=== PATIENT | male | born 1970 | race Two or more races ===

== ENCOUNTER 2024-12-09 15:52 | Inpatient (IN) | payer OTHER ==
[2024-12-09] MEDS ORDERED: LOPERAMIDE HCL 2 MG CAPSULE PO PRN (18:08)
[2024-12-09] MEDS ORDERED: IBUPROFEN 400 MG TABLET (FP) PO PRN (18:08)
[2024-12-09] MEDS ORDERED: DICYCLOMINE HCL 10 MG CAPSULE PO PRN (18:08)
[2024-12-09] MEDS ORDERED: MAG HYDROX/AL HYDROX/SIMETH 30 ML UNIT-DOSE CUP PO PRN (18:08)
[2024-12-09] MEDS ORDERED: ONDANSETRON *ODT* 4 MG TABLET SL PRN (18:08)
[2024-12-09] MEDS ORDERED: BENZOCAINE/MENTHOL (CHLORASEPTIC ) LOZENGE MM PRN (18:08)
[2024-12-09] MEDS ORDERED: BISMUTH SUBSALICYLATE 524 MG/30 ML PO PRN (18:08)
[2024-12-09] MEDS ORDERED: ACETAMINOPHEN 325 MG TABLET (FP) PO PRN (18:08)
[2024-12-09] MEDS ORDERED: NALOXONE (NARCAN) HCL 4 MG/0.1 ML SPRAY NS PRN (18:08)
[2024-12-09] MEDS ORDERED: BENZONATATE 200 MG CAPSULE PO PRN (18:08)
[2024-12-09 21:15] VITALS: BMI 25.9
[2024-12-09] MEDS: THIAMINE 100 MG TABLET PO SCH (22:01)
[2024-12-09] MEDS: METHOCARBAMOL 500 MG TABLET PO PRN (22:01)
[2024-12-09] MEDS: hydrOXYzine PAMOATE 25 MG CAPSULE (FP) PO PRN (22:01)
[2024-12-09] MEDS: MELATONIN 5 MG TABLETS PO SCH (22:01)
[2024-12-10 10:32] LABS: MCHC 30.5 g/dl (32.3-36.5); MEAN CELL VOLUME 94.0 fl (79.0-92.2); MEAN PLT VOLUME 12.0 fl (9.4-12.4); RDW 15.0 % (12.2-16.1)
[2024-12-10] MEDS: PRENATAL VITAMINS W/ FOLIC ACID TABLET (FP) PO SCH (10:52)
[2024-12-10 11:07] LABS: GLUCOSE,RANDOM 88 mg/dL (74-106); TOT PROT 7.3 g/dl (6.4-8.2)
[2024-12-10 11:08] LABS: CO2 26 mmol/L (21-32)
[2024-12-10 11:10] LABS: ALK PHOS 106 U/L (40-150)
[2024-12-10 11:13] LABS: CREATININE 0.83 mg/dL (0.55-1.3); SGOT/AST 23 U/L (5-34); SGPT/ALT 13 U/L (0-55)
[2024-12-10] MEDS: clonazePAM 1 MG ODT TABLETS SL SCH (15:08)
[2024-12-10] MEDS: NICOTINE 14 MG/24 HOURS TOPICAL PATCH TD SCH (15:08)
[2024-12-10] MEDS: guaiFENesin 600 MG TABLET.ER (FP) PO PRN (22:19)
[2024-12-10] MEDS: SUVOREXANT 10 MG TABLET PO PRN (22:19)
[2024-12-11] MEDS: IBUPROFEN 600 MG TABLET (FP) PO PRN (18:52)
[2024-12-12] MEDS: MAGNESIUM HYDROX 2400MG/30ML ORAL SUSPENSION 30 ML CUP PO PRN (16:45)
[2024-12-12] MEDS: POLYETHYLENE GLYCOL (HEALTHYLAX) 3350 17 GM PACKET PO PRN (22:31)
[2024-12-13] MEDS: MELATONIN 5 MG TABLETS PO ONE (22:29)
[2024-12-14 06:55] VITALS: PULSE 65; RESP 16
[2024-12-14 09:12] VITALS: BP 109/71; TEMP 98.9
== END 2024-12-14 09:30 | disposition home or self-care (01) | DRG 773 ==
LOC: YASAS 15:52 → Y6N 21:14
PROVIDERS: ADMIT Neuromusculoskeletal Medicine & OMM; ATTEND Counselor Addiction (Substance Use Disorder)
PROC: HZ2ZZZZ Detoxification Services for Substance Abuse Treatment (ICD-10-PCS; principal; 2024-12-09)
DX: F11.23 Opioid dependence with withdrawal (principal); F14.20 Cocaine dependence, uncomplicated; F12.20 Cannabis dependence, uncomplicated; F17.210 Nicotine dependence, cigarettes, uncomplicated; F31.9 Bipolar disorder, unspecified; F19.282 Other psychoactive substance dependence with psychoactive substance-induced sleep disorder; F19.24 Other psychoactive substance dependence with psychoactive substance-induced mood disorder; E78.5 Hyperlipidemia, unspecified; I25.10 Atherosclerotic heart disease of native coronary artery without angina pectoris; I10 Essential (primary) hypertension
CPT/HCPCS: 36415; 80053; 80307; 85027; 86780; 93005; 93010